=== PATIENT | male | born 1935 | race Caucasian/White ===

== ENCOUNTER 2017-11-11 06:06 | Day surgery (SDC) | payer MEDICARE ==
[2017-11-10 11:39] VITALS: BMI 26.6
[2017-11-11] MEDS ORDERED: Lactated Ringer's 1,000 ML IV ONE (08:05)
[2017-11-11] MEDS ORDERED: Propofol 10 mg/ml Inj (20 ML) ONE ×2 (08:09→08:13)
--- NOTE | 2017-11-11 08:10 | CP.SDSHP ---
Same Day Surgery H & P - History Proposed Procedure: colonoscopy Pre-Op Diagnosis: change in bowels. h/o colon cancer - Previous Medical/Surgical History Cardiac: Hypertension Endocrine/Metabolic: Diabetes Misc: Other (BPH, Colon Cancer 2015) Previous Surgical History: Hemicolectomy-2015 - Allergies Allergies: Allergies No Known Allergies Allergy (Verified 11/10/17 11:38) - Physical Exam Vital Signs: Vital Signs 11/11/17 06:44 Temperature 97.5 F L Pulse Rate 59 L Respiratory 19 Rate Blood Pressure 188/84 H O2 Sat by Pulse 98 Oximetry Mental Status: Alert & Oriented x3 Neuro: WNL Heart: WNL Lungs: WNL GI: Other (midline scar, well healed) - Impression Impression: change in bowels. h/o colon cancer Pt. Evaluated Today:Candidate for Anesthesia & Procedure: Yes - Date & Time Date: 11/11/17 Time: 08:10 Short Stay Discharge - Short Stay Discharge Admitting Diagnosis/Reason for Visit: CHANGE IN BOWEL HABIT Disposition: HOME/ ROUTINE
[2017-11-11] MEDS ORDERED: Lidocaine Hydrochloride 5 ML INJ ONE (08:13)
[2017-11-11] MEDS ORDERED: Lactated Ringer's 500 ML IV SCH (08:30)
[2017-11-11 08:48] VITALS: TEMP 98
[2017-11-11 09:44] VITALS: BP 160/75; PULSE 55; RESP 15; O2SAT 99
== END 2017-11-11 09:41 | disposition home or self-care (01) ==
LOC: C.ENDO 06:06
PROVIDERS: ATTEND Internal Medicine Gastroenterology
DX: Z12.11 Encounter for screening for malignant neoplasm of colon (principal); R19.4 Change in bowel habit; Z85.038 Personal history of other malignant neoplasm of large intestine; K64.1 Second degree hemorrhoids; Z90.49 Acquired absence of other specified parts of digestive tract; N40.0 Benign prostatic hyperplasia without lower urinary tract symptoms; E11.9 Type 2 diabetes mellitus without complications; I10 Essential (primary) hypertension
CPT/HCPCS: 82948; G0105; J2704; J7120